=== PATIENT | male | born 1995 | race Two or more races ===

== ENCOUNTER 2019-04-08 16:47 | Emergency (ER) | payer OTHER ==
[~2019-04-08] VITALS: Ht 185.4 cm; Wt 110.2 kg
--- NOTE | 2019-04-08 17:18 | NUR ---
PT CALM, LYING IN GURNEY. STATES CHEST PAIN IS INTERMITTENT, MORE ON L SIDE, WORSE IN EVENINGS BEFORE BED. RV'WD POC WITH PT. FAMILY AT BS.
--- NOTE | 2019-04-08 17:32 | NUR ---
ERP AT NOW.
[2019-04-08 17:52] LABS: BASOPHILS # (AUTO) 0.01 x10^3/uL (0-0.1); BASOPHILS % (AUTO) 0 % (0-1); EOSINOPHILS # (AUTO) 0.02 x10^3/uL (0-0.4); EOSINOPHILS % (AUTO) 0 % (1-7); LYMPHOCYTES # (AUTO) 0.95 x10^3/uL (1-3.4); LYMPHOCYTES % (AUTO) 10 % (22-44); MD NO; MEAN CORPUSCULAR HGB CONC 33.7 g/dL (33.2-36.2); MEAN CORPUSCULAR VOLUME 95.1 fL (81-97); MEAN PLATELET VOLUME 11.4 fL (7.4-10.4); MONOCYTES # (AUTO) 0.77 x10^3/uL (0.2-0.8); MONOCYTES % (AUTO) 8 % (2-9); NEUTROPHILS # (AUTO) 8.02 x10^3/uL (1.8-6.8); NEUTROPHILS % (AUTO) 82 % (42-75); PLATELET COUNT 185 x10^3/uL (130-400); RED BLOOD COUNT 5.21 x10^6/uL (4.38-5.82); RED CELL DISTRIBUTION WIDTH 13.4 % (9.4-14.8)
[2019-04-08 18:03] LABS: ALBUMIN 4.3 g/dL (3.4-5.0); ANION GAP 9 mmol/L (5-15); CALCIUM 9.4 mg/dL (8.5-10.1); CHLORIDE 106 mmol/L (98-107); CREATININE 0.97 mg/dL (0.7-1.3)
[2019-04-08 18:07] LABS: TROPONIN I < 0.015 ng/mL (0.000-0.045)
[2019-04-08 18:30] VITALS: BP 122/61
--- NOTE | 2019-04-08 18:49 | NUR ---
ERP AT FOR RECHECK.
--- NOTE | 2019-04-08 19:18 | NUR ---
D/C INSTRUCTIONS & F/U APPT RV'WD WITH PT, HE VERBALIZES UNDERSTANDING. INSTRUCTED PT TO RETURN FOR WORSENING SYMPTOMS. PT AMBULATED OUT OF ED WITH MOTHER WITHOUT DIFFICULTY.
== END 2019-04-08 19:32 | disposition home or self-care (01) ==
LOC: ED 19:30
DX: R07.89 Other chest pain (principal)
CPT/HCPCS: 36415; 80048; 82040; 84484; 85025; 93005; 99284

== ENCOUNTER 2019-04-11 11:15 | Emergency (ER) | payer OTHER ==
[~2019-04-11] VITALS: Ht 185.4 cm; Wt 105.0 kg
[2019-04-11 11:33] VITALS: BP 130/73
--- NOTE | 2019-04-11 11:35 | NUR ---
PT AMBULATORY TO ROOM 02 W/ C/O CP STARTED SUNDAY. WAS SEEN FOR SAME AT AND HERE THAT DAY. STATES PAIN IS THE SAME AND PT IS CONCERNED IT IS A HEART ISSUE. PT DENIES ANY CARDAIC/PULM HX. PT RESTING ON GURNEY. NADN. VSS. MONITORS APPLIED. WARM BLANKET PROVIDED.
--- NOTE | 2019-04-11 11:41 | NUR ---
AVIVA LLANOS AT BEDSIDE.
== END 2019-04-11 11:50 | disposition home or self-care (01) ==
LOC: ED 11:40
DX: S29.011A Strain of muscle and tendon of front wall of thorax, initial encounter (principal); X58.XXXA Exposure to other specified factors, initial encounter; Y93.89 Activity, other specified; Y92.89 Other specified places as the place of occurrence of the external cause; Y99.8 Other external cause status
CPT/HCPCS: 93005; 99283